=== PATIENT | female | born 1990 | race Two or more races ===

== ENCOUNTER 2016-11-22 16:14 | Emergency (ER) | payer SELFPAY ==
[~2016-11-22] VITALS: Ht 157.5 cm; Wt 90.7 kg
[2016-11-22 18:13] LABS: BASO # 0.1 x10^3/uL (0.0-0.2); BASO % 1 % (0-3); EOS % 2 % (0-3); HEMATOCRIT 40.6 % (36.0-47.0); HEMOGLOBIN 13.7 g/dL (12.0-15.5); LYMPH # 3.1 x10^3/uL (1.0-4.8); LYMPH % 28 % (24-48); MEAN CORPUSCULAR HEMOGLOBIN 29 pg (25-35); MEAN CORPUSCULAR HGB CONC 34 g/dL (31-37); MEAN CORPUSCULAR VOLUME 87 fL (79-100); MONO % 8 % (0-9); NEUT % 62 % (31-73); PLATELET COUNT 314 x10^3/uL (140-400); RED CELL DISTRIBUTION WIDTH 12.8 % (11.5-14.5); WHITE BLOOD COUNT 11.5 x10^3/uL (4.0-11.0)
[2016-11-22 18:14] LABS: BILIRUBIN,URINE NEGATIVE (NEG); GLUCOSE,URINE NEGATIVE (NEG); NITRITE,URINE NEGATIVE (NEG); PROTEIN,URINE NEGATIVE (NEG-TRACE)
[2016-11-22 18:22] LABS: BACTERIA,URINE 0 /HPF (0-FEW); RBC,URINE RARE /HPF (0-2); SQUAMOUS EPITHELIAL CELL,UR FEW /LPF; WBC,URINE 0 /HPF (0-4)
--- NOTE | 2016-11-22 18:56 | RAD ---
PROCEDURE First trimester OB ultrasound. HISTORY Back pain, , vaginal bleeding. Positive test. TECHNIQUE Endovaginal imaging was performed. COMPARISON None. FINDINGS Uterus measures 6.5 centimeters in length. Single live intrauterine is identified with gestational sac, yolk sac, and embryo seen. Mean crown-rump length is 2.04 centimeters corresponding to 8 weeks 4 days. Estimated date of delivery based on this measurement is June 30, 2017. Embryonic heart motion is 169 beats per minute. Subchorionic hemorrhage is seen which is estimated to involve 25 percent of the gestational at sac circumference. The right ovary measures 1.2 x 2.7 x 1.6 centimeters and demonstrates a few follicles. Right ovary is without evidence of torsion. Left ovary is not seen with endovaginal imaging. With transabdominal imaging, left ovary measures 3.6 x 2.5 x 2.6 centimeters and is unremarkable. Left ovary is without torsion. No adnexal masses are seen. IMPRESSION 1. Single live intrauterine . Average ultrasound age is 8 weeks 4 days. Estimated date of delivery is June 30, 2017. 2. Subchorionic hemorrhage, estimated to involve 25 percent of gestational sac circumference. Electronically signed by: Gustavo Hoffman MD (Nov 22, 2016 18:55:12)
[2016-11-22 19:13] VITALS: BP 97/57
[2016-11-22] MEDS ORDERED: PREN1TAB58 PO (19:41)
--- NOTE | 2016-11-22 19:42 | PHYS DOC ---
Past Medical History Past Medical History: No Pertinent History Past Surgical History: No Surgical History Alcohol Use: None Drug Use: None Adult General Chief Complaint Chief Complaint: VAGINAL BLEEDING HPI HPI 26-year-old female who's had several days of spotting but no abdominal pain. She states this is her first and she estimates she is an estimated 8 weeks from her last menstrual period. She has not yet received any care. She does not have an OB doctor. She denies any shortness of breath. She denies any chest pain. Review of Systems Review of Systems Constitutional: Denies fever or chills [] Eyes: Denies change in visual acuity, redness, or eye pain [] HENT: Denies nasal congestion or sore throat [] Respiratory: Denies cough or shortness of breath [] Cardiovascular: No additional information not addressed in HPI [] GI: Denies abdominal pain, nausea, vomiting, bloody stools or diarrhea [] : Denies dysuria or hematuria [] Musculoskeletal: Denies back pain or joint pain [] Integument: Denies rash or skin lesions [] Neurologic: Denies headache, focal weakness or sensory changes [] Endocrine: Denies polyuria or polydipsia [] Allergies Allergies Allergies Coded Allergies Type Severity Reaction Last Updated Verified No Known Drug Allergies 11/22/16 No Physical Exam Physical Exam Constitutional: Well developed, well nourished, no acute distress, non-toxic appearance. [] HENT: Normocephalic, atraumatic, bilateral external ears normal, oropharynx moist, no oral exudates, nose normal. [] Eyes: PERRLA, EOMI, conjunctiva normal, no discharge. [] Neck: Normal range of motion, no tenderness, supple, no stridor. [] Cardiovascular:Heart rate regular rhythm, no murmur [] Lungs & Thorax: Bilateral breath sounds clear to auscultation [] Abdomen: Bowel sounds normal, soft, no tenderness, no masses, no pulsatile masses. [] Pelvic exam: Unable to adequately visualize cervical os due to patient body habitus but no active bleeding is seen. Skin: Warm, dry, no erythema, no rash. [] Back: No tenderness, no CVA tenderness. [] Extremities: No tenderness, no cyanosis, no clubbing, ROM intact, no edema. [] Neurologic: Alert and oriented X 3, normal motor function, normal sensory function, no focal deficits noted. [] Psychologic: Affect normal, judgement normal, mood normal. [] Current Patient Data Vital Signs Vital Signs Date Time Temp Pulse Resp B/P Pulse Ox O2 Delivery O2 Flow Rate FiO2 11/22/16 19:13 97 20 97/57 96 Room Air 11/22/16 16:33 98.1 98.1 Lab Values Laboratory Tests Test 11/22/16 17:05 11/22/16 18:00 POC Urine HCG, Qualitative Hcg positive (Negative) White Blood Count 11.5x10^3/uL (4.0-11.0) H Red Blood Count 4.70x10^6/uL (3.50-5.40) Hemoglobin 13.7g/dL (12.0-15.5) Hematocrit 40.6% (36.0-47.0) Mean Corpuscular Volume 87fL (79-100) Mean Corpuscular Hemoglobin 29pg (25-35) Mean Corpuscular Hemoglobin Concent 34g/dL (31-37) Red Cell Distribution Width 12.8% (11.5-14.5) Platelet Count 314x10^3/uL (140-400) Neutrophils (%) (Auto) 62% (31-73) Lymphocytes (%) (Auto) 28% (24-48) Monocytes (%) (Auto) 8% (0-9) Eosinophils (%) (Auto) 2% (0-3) Basophils (%) (Auto) 1% (0-3) Neutrophils # (Auto) 7.1x10^3uL (1.8-7.7) Lymphocytes # (Auto) 3.1x10^3/uL (1.0-4.8) Monocytes # (Auto) 1.0x10^3/uL (0.0-1.1) Eosinophils # (Auto) 0.2x10^3/uL (0.0-0.7) Basophils # (Auto) 0.1x10^3/uL (0.0-0.2) Urine Collection Type Unknown Urine Color Yellow Urine Clarity Cloudy Urine pH 7.0 Urine Specific [place] 1.025 Urine Protein Negativemg/dL (NEG-TRACE) Urine Glucose (UA) Negativemg/dL (NEG) Urine Ketones (Stick) Negativemg/dL (NEG) Urine Blood Small (NEG) Urine Nitrite Negative (NEG) Urine Bilirubin Negative (NEG) Urine Urobilinogen Dipstick 1.0mg/dL (0.2 mg/dL) Urine Leukocyte Esterase Negative (NEG) Urine RBC Rare/HPF (0-2) Urine WBC 0/HPF (0-4) Urine Squamous Epithelial Cells Few/LPF Urine Amorphous Sediment Present/HPF Urine Bacteria 0/HPF (0-FEW) Urine Mucus Mod/LPF Maternal Serum HCG Beta Subunit [id number]/mL (0-6) H Laboratory Tests 11/22/16 18:00 EKG EKG [] Radiology/Procedures Radiology/Procedures PROCEDURE First trimester OB ultrasound. HISTORY Back pain, , vaginal bleeding. Positive test. TECHNIQUE Endovaginal imaging was performed. COMPARISON None. FINDINGS Uterus measures 6.5 centimeters in length. Single live intrauterine is identified with gestational sac, yolk sac, and embryo seen. Mean crown-rump length is 2.04 centimeters corresponding to 8 weeks 4 days. Estimated date of delivery based on this measurement is June 30, 2017. Embryonic heart motion is 169 beats per minute. Subchorionic hemorrhage is seen which is estimated to involve 25 percent of the gestational at sac circumference. The right ovary measures 1.2 x 2.7 x 1.6 centimeters and demonstrates a few follicles. Right ovary is without evidence of torsion. Left ovary is not seen with endovaginal imaging. With transabdominal imaging, left ovary measures 3.6 x 2.5 x 2.6 centimeters and is unremarkable. Left ovary is without torsion. No adnexal masses are seen. IMPRESSION 1. Single live intrauterine . Average ultrasound age is 8 weeks 4 days. Estimated date of delivery is June 30, 2017. 2. Subchorionic hemorrhage, estimated to involve 25 percent of gestational sac circumference. Course & Med Decision Making Course & Med Decision Making Pertinent Labs and Imaging studies reviewed. (See chart for details) 26-year-old female who's having vaginal bleeding in early . Her transvaginal ultrasound demonstrates a single live IUP with an estimated stationary age of 8 weeks and 4 days. There is also a subchorionic hemorrhage which is estimated to involve 25% of the gestational sac. Her pelvic exam was difficult due to her body habitus. Her laboratory workup reveals a beta Quant that is consistent with her age. Her blood type is O+. I will be giving her a OB follow-up and a prescription for vitamins. I counseled her that her is in a threatened state and she is to follow closely in the next 48- 72 hours for repeat blood draw. Ewa Disclaimer Ewa Disclaimer This electronic medical record was generated, in whole or in part, using a voice recognition dictation system. Departure Departure Impression: Primary Impression: Threatened Disposition: HOME, SELF-CARE Admitting Physician: Other Condition: STABLE Referrals: NO PCP (PCP) MARQUITA QUINONEZ MD Patient Instructions: Threatened Miscarriage, [id number] Additional Instructions: Please follow up with the OB doctor in the next 2-3 days to have your labwork redrawn. Take your vitamins as prescribed. Return to the ER if your vaginal bleeding should worsen of if you develop any worsening of your pain. Scripts Vits W-Ca,Fe,Fa(<1MG) ( Vitamins)1 Each Tablet1 Each PO DAILY # 30 Prov:BENJA ACUNA DO 11/22/16 BENJA ACUNA DO Nov 22, 2016 19:42
== END 2016-11-22 19:47 | disposition home or self-care (01) ==
LOC: ER 16:14
DX: O20.0 Threatened abortion (principal); Z3A.08 8 weeks gestation of pregnancy
CPT/HCPCS: 36415; 76817; 81001; 81025; 84702; 85027; 86900; 86901; 99285-25